=== PATIENT | male | born 1970 | race Caucasian/White ===

== ENCOUNTER 2018-09-12 17:06 | Emergency (ER) | payer OTHER ==
--- NOTE | 2018-09-12 17:41 | Emergency Department Record ---
History of Present Illness - General Stated Complaint: FULL ARREST Time Seen by Provider: 09/12/18 17:08 Source: EMS Mode of Arrival: EMS Limitations: Altered mental status - History of Present Illness Initial Comments: 48 yo male presents after an in home collapse and arrest. Per EMS he had a seizure at the time of the event. He per EMS has know alcohol use/abuse with a history of w/d seizures in the past. Per EMS he was found on scene agonal with no pulse. He was intubated with an Igel. Glucose was 156. He was on scene with 5 rounds of EPI without a pulse but ETCO2 remains in the 30's. In the ED he was in asystole on arrival without pulse, he was given Epi with CPR and converted to VTach. He was shocked into a narrow complex bradycardic rhythm with a fleeting pulse that returned to asystole very quickly. There was no return of circulation or pulses after this. Atropine and additional dose of Epinephrin given. Bedside US was used throughout the code. No cardiac activity was visible. The patient was pronounced in the ED. NO signs of trauma. TOD 1730 (greater than 60 minutes after CPR initiated) Family arrived in the ED to provide additional history. The patient is a chronic alcohol. He has been hospitalized in the past at [facility] [place] for alcholol withdrawal seizures. Per family the patient had stopped drinking 2 days ago. His sister had gone up to the pharmacy to fill his blood pressure medications. Per family he had not taken them in several days. He had what looked like a witnessed seizure and collapsed MD Complaint: Collapsed during activity -: Minute(s) Place: Home Bystander CPR Performed: No AED Applied by Bystander/Manager Skilled: Yes (EMS) Shock Advised: No Initial Findings in the Field: No respirations, Unresponsive, No pulse, PEA Associated Injuries: No Associated Symptoms: Other (Seizure at onset) Treatments Prior to Arrival: Chest compressions, Intubation, Other airway device , Epinephrine mgs # (5) - [place] Coma Scale Eye Response: (1) No response Motor Response: (1) No motor response Verbal Response: (1) No verbal response Danyel Total: 3 - Related Data Home Medications Medication Instructions Recorded Confirmed Last Taken Unobtainable 09/12/18 09/12/18 Unknown Allergies Allergy/AdvReac Type Severity Reaction Status Date / Time Unable to Assess Allergy Unverified 09/12/18 18:24 Review of Systems ROS unobtainable: Due to endotracheal tube Physical Exam - General General Appearance: Other (unresponsive, intubated, no spontaneous movements, no pulse, no respirations) Limitations: Altered mental status - Head Head exam: Atraumatic, Normal inspection - Eye Eye exam: Other (dilated). negative: Normal appearance, EOMI - ENT ENT exam: Normal exam, Mucous membranes moist Ear exam: Normal external inspection Nasal Exam: Normal inspection Mouth exam: Normal external inspection - Neck Neck exam: Normal inspection - Respiratory Respiratory exam: Normal lung sounds bilaterally (Bilateral breath sounds with bagging, no spontaneous breaths) - Cardiovascular Cardiovascular Exam: Other (No heart sounds). negative: Regular rate, Normal rhythm, Normal heart sounds, Bradycardia Peripheral Pulses: 0: Radial (R), Radial (L) - GI/Abdominal GI/Abdominal exam: Soft. negative: Distended - Rectal Rectal exam: Deferred - exam: Deferred - Extremities Extremities exam: Normal inspection. negative: Pedal edema - Neurological Neurological exam: Altered, Other (Unresponsive) - Psychiatric Psychiatric exam: Other - Skin Skin exam: Cyanosis, Pallor. negative: Normal color Course - Reevaluation(s) Reevaluation #1: Code Summary: In the ED he was in asystole on arrival without pulses, he was given Epi with CPR and converted to VTach that was pulseless. He wasgiven Amioardone and shocked into a narrow complex bradycardic rhythm with a rate of about 40 with a fleeting pulse that returned to asystole very quickly without pulses. There was no return of circulation or pulses after this. Atropine and additional dose of Epinephrin had been given. Bedside US was used throughout the code. No organized cardiac activity was visible. The patient was pronounced in the ED. NO signs of trauma. TOD 1730 (greater than 60 minutes after CPR initiated) The [facility] was notified of a in the ED 09/12/18 18:32 Medical Decision Making - Lab Data Result diagrams: 09/12/18 17:19 09/12/18 17:19 Disposition Disposition: Discharge Clinical Impression: Cardiac arrest Disposition: / Time of Disposition: 18:36 Quality - Quality Measures Quality Measures: N/A - Blood Pressure Screening Does Patient Have Any of the Following: Active Dx of HTN Systolic Measurement: ~ Screening for High Blood Pressure: Patient Exclusion, Hx of HTN [[id number]]
== END 2018-09-12 19:08 | disposition expired ==
LOC: ER 17:06
DX: I46.9 Cardiac arrest, cause unspecified (principal); G40.909 Epilepsy, unspecified, not intractable, without status epilepticus; I10 Essential (primary) hypertension
CPT/HCPCS: 92950; 96365; 96375; 99285